=== PATIENT | female | born 1990 | race Two or more races ===

== ENCOUNTER 2022-03-25 12:30 | Inpatient (IN) | payer OTHER ==
[~2022-03-25] VITALS: Ht 154.9 cm; Wt 3.2 kg
[2022-03-30] MEDS ORDERED: COMPLETE NATAL1 EACH PO (10:58)
== END 2022-04-01 13:50 | disposition home or self-care (01) | DRG 785 ==
LOC: OB/GYN 03-30 10:28 → O/R 03-30 10:28 → OB/GYN 03-30 12:30
PROVIDERS: ADMIT Obstetrics & Gynecology; ATTEND Obstetrics & Gynecology
PROC: 0UB70ZZ Excision of Bilateral Fallopian Tubes, Open Approach (ICD-10-PCS; 2022-03-30)
PROC: 4A1HXCZ Monitoring of Products of Conception, Cardiac Rate, External Approach (ICD-10-PCS; 2022-03-30)
PROC: 10D00Z1 Extraction of Products of Conception, Low, Open Approach (ICD-10-PCS; principal; 2022-03-30 12:30)
DX: O34.211 Maternal care for low transverse scar from previous cesarean delivery (principal); Z3A.39 39 weeks gestation of pregnancy; Z37.0 Single live birth; Z30.2 Encounter for sterilization; Z20.822 Contact with and (suspected) exposure to COVID-19